=== PATIENT | male | born 1950 | race American Indian/Alaskan Native ===

== ENCOUNTER 2019-07-29 17:28 | Observation (INO) | payer MEDICARE ==
[~2019-07-29] VITALS: Ht 170.2 cm; Wt 75.9 kg
[2019-07-29 18:44] LABS: BASOPHILS % (AUTO) 0.3 % (0-1); EOSINOPHILS % (AUTO) 0.3 % (0-6); LYMPHOCYTES # (AUTO) 0.6 X10'3 (1.1-4.8); LYMPHOCYTES % (AUTO) 5.1 % (21-51); MEAN CORPUSCULAR HEMOGLOBIN 28.6 PG (27.0-31.0); MEAN CORPUSCULAR HGB CONC 34.2 g/dL (33.0-36.5); MEAN CORPUSCULAR VOLUME 83.8 FL (78-98); MEAN PLATELET VOLUME 6.6 FL (7.4-10.4); MONOCYTES # (AUTO) 0.8 X10'3 (0-0.9); MONOCYTES % (AUTO) 6.4 % (2-12); NEUTROPHILS # (AUTO) 10.5 X10'3 (1.8-7.7); NEUTROPHILS % (AUTO) 87.9 % (42-75); PLATELET COUNT 316 X10'3 (140-440); RED BLOOD COUNT 4.54 X10'6 (4.70-6.10); RED CELL DISTRIBUTION WIDTH 13.7 % (11.5-14.5); WHITE BLOOD COUNT 11.9 X10'3 (4.5-11.0)
[2019-07-29 19:11] LABS: ALANINE AMINOTRANSFERASE 28 U/L (12-78); ALBUMIN 2.8 G/DL (3.4-5.0); ALBUMIN/GLOBULIN RATIO 0.7 (1.1-1.5); ALKALINE PHOSPHATASE 89 IU/L (46-116); ANION GAP 11 (8-16); ASPARTATE AMINO TRANSFERASE 32 U/L (10-37); BILIRUBIN,TOTAL 0.5 MG/DL (0.1-1.0); BLOOD UREA NITROGEN 40 MG/DL (7-18); BUN/CREATININE RATIO 23.4 (5.4-32.0); CALCIUM 8.4 MG/DL (8.5-10.1); CHLORIDE 93 MMOL/L (99-107); CREATININE 1.71 MG/DL (0.60-1.10); GLUCOSE 171 MG/DL (70-104); SODIUM 131 MMOL/L (135-145); TOTAL CARBON DIOXIDE 26.9 MMOL/L (24-32); TOTAL PROTEIN 7.1 G/DL (6.4-8.2); eGFR 40 ML/MIN
[2019-07-29 19:15] LABS: POTASSIUM 2.6 MMOL/L (3.5-5.1)
[2019-07-29 19:25] LABS: PARTIAL THROMBOPLASTIN TIME 32 SECONDS (22-32)
[2019-07-29] MEDS ORDERED: potassium 10mEq/100ml NS w/LIDOcaine (10mg/bag) IV SCH (19:40)
[2019-07-29] MEDS: potassium CL 10mEq/100ml bag 100 ML IV SCH ×2 (20:05→21:06)
[2019-07-29] MEDS ORDERED: METF1000 PO (20:28)
[2019-07-29] MEDS ORDERED: LOSA50TA3 PO (20:28)
[2019-07-29] MEDS ORDERED: CHLO25TA2 PO (20:28)
[2019-07-29] MEDS ORDERED: NIFE90TA37 PO (20:28)
[2019-07-29] MEDS ORDERED: METO100T7 PO (20:28)
[2019-07-29] MEDS ORDERED: ASPI-611 PO (20:29)
[2019-07-29] MEDS ORDERED: OMEG1000 PO (20:29)
[2019-07-29] MEDS ORDERED: ATOR80TA PO (20:29)
[2019-07-29] MEDS ORDERED: FEXO-124 PO (20:29)
[2019-07-29] MEDS ORDERED: FLUT1DIS4 INH (20:29)
[2019-07-29] MEDS ORDERED: VITC500T PO (20:29)
[2019-07-29] MEDS ORDERED: IRON18TA PO (20:29)
[2019-07-29] MEDS ORDERED: FAMO20TA8 PO (20:29)
[2019-07-29] MEDS ORDERED: INSU100V5 SQ ×2 (20:29)
[2019-07-29] MEDS: normal saline 1000ml 1,000 ML IV SCH (20:56)
[2019-07-29] MEDS ORDERED: magnesium 4gm in 100ml NS 100 ML IV PRN (21:00)
[2019-07-29] MEDS ORDERED: potassium CL 10mEq/100ml bag 100 ML IV PRN ×2 (21:00)
[2019-07-29] MEDS ORDERED: potassium Cl 20 mEq SR tablet PO PRN ×2 (21:00)
[2019-07-29] MEDS ORDERED: insulin glargine (Lantus) pen - multi-dose SQ SCH (21:00)
[2019-07-29] MEDS ORDERED: mag hydrox/Alum hydrox/simeth 30ml oral suspension PO PRN (21:00)
[2019-07-29] MEDS ORDERED: potassium Cl 20 mEq SR tablet PO ONE (21:00)
[2019-07-29] MEDS ORDERED: ondansetron/PF 4mg/2ml inj IV PRN (21:00)
[2019-07-29] MEDS ORDERED: glucagon, human recombinant 1mg kit SUBCUT PRN (21:00)
[2019-07-29] MEDS ORDERED: magnesium hydroxide 30ml (MOM) UD suspension PO PRN (21:00)
[2019-07-29] MEDS ORDERED: magnesium Cl slow-release 64mg tablet PO PRN (21:00)
[2019-07-29] MEDS ORDERED: dextrose ORAL solution 15 GM/59 ML bottle PO PRN ×2 (21:00)
[2019-07-29] MEDS ORDERED: HYDROcodone/acetaminophen 5mg/325mg tablet PO PRN (21:00)
[2019-07-29] MEDS ORDERED: magnesium 2GM in 50ml NS 50 ML IV PRN (21:00)
[2019-07-29] MEDS ORDERED: dextrose 50%-water 50ml dispensing syringe IV PRN ×2 (21:00)
[2019-07-29] MEDS ORDERED: MESSAGE TO PHARMACY PO ONE (21:00)
[2019-07-29] MEDS ORDERED: insulin Lispro (HumaLOG) vial - multi-dose SQ SCH (21:00)
[2019-07-29] MEDS ORDERED: acetaminophen 325mg tablet PO PRN ×2 (21:00)
[2019-07-29 21:38] LABS: HEMOGLOBIN A1C 6.5 % (4.5-6.2)
[2019-07-29 22:00] VITALS: BP 149/67
[2019-07-30] MEDS: albuterol 2.5 MG/3 ML nebule NEB SCH ×3 (02:46→14:11)
[2019-07-30 06:00] VITALS: BP 118/55
[2019-07-30 06:05] LABS: BASOPHILS % (AUTO) 0.3 % (0-1); EOSINOPHILS % (AUTO) 0.5 % (0-6); HEMATOCRIT 33.1 % (42.0-52.0); HEMOGLOBIN 11.7 g/dl (14.0-17.9); LYMPHOCYTES # (AUTO) 0.7 X10'3 (1.1-4.8); LYMPHOCYTES % (AUTO) 7.4 % (21-51); MEAN CORPUSCULAR HEMOGLOBIN 29.5 PG (27.0-31.0); MEAN CORPUSCULAR HGB CONC 35.4 g/dL (33.0-36.5); MEAN CORPUSCULAR VOLUME 83.5 FL (78-98); MEAN PLATELET VOLUME 6.6 FL (7.4-10.4); MONOCYTES # (AUTO) 0.8 X10'3 (0-0.9); MONOCYTES % (AUTO) 7.9 % (2-12); NEUTROPHILS % (AUTO) 83.9 % (42-75); PLATELET COUNT 275 X10'3 (140-440); RED BLOOD COUNT 3.97 X10'6 (4.70-6.10); RED CELL DISTRIBUTION WIDTH 13.7 % (11.5-14.5); WHITE BLOOD COUNT 9.6 X10'3 (4.5-11.0)
[2019-07-30 06:10] LABS: ALBUMIN 2.4 G/DL (3.4-5.0); ANION GAP 10 (8-16); BLOOD UREA NITROGEN 32 MG/DL (7-18); BUN/CREATININE RATIO 19.8 (5.4-32.0); CALCIUM 8.2 MG/DL (8.5-10.1); CHLORIDE 101 MMOL/L (99-107); CREATININE 1.62 MG/DL (0.60-1.10); GLUCOSE 159 MG/DL (70-104); MAGNESIUM 2.3 MG/DL (1.5-2.4); POTASSIUM 3.1 MMOL/L (3.5-5.1); SODIUM 139 MMOL/L (135-145); TOTAL CARBON DIOXIDE 27.9 MMOL/L (24-32); eGFR 43 ML/MIN
--- NOTE | 2019-07-30 06:35 | NUR ---
Report given to irene Cummings.
[2019-07-30] MEDS ORDERED: budesonide 0.5mg/2ml UD nebule IH SCH (08:00)
[2019-07-30] MEDS ORDERED: loratadine 10mg tablet PO SCH (08:00)
[2019-07-30] MEDS ORDERED: OMEGA-3/DHA/EPA/FISH OIL 1 EACH CAPSULE.DR PO SCH (08:00)
[2019-07-30] MEDS ORDERED: NIFEdipine XL 30mg tablet PO SCH (08:00)
[2019-07-30] MEDS ORDERED: ascorbic acid 500mg tablet PO SCH (08:00)
[2019-07-30] MEDS ORDERED: ferrous sulfate 325mg tablet PO SCH (08:00)
[2019-07-30] MEDS ORDERED: K and/or MAG REPLACEMENT MC SCH (08:00)
[2019-07-30] MEDS ORDERED: metoprolol succinate 25mg (24-HOUR) SR. Tablet PO SCH (08:00)
[2019-07-30] MEDS ORDERED: aspirin 81mg tablet.DR PO SCH (08:00)
[2019-07-30] MEDS ORDERED: famotidine 20mg tablet PO SCH (08:00)
[2019-07-30 10:00] VITALS: BP 124/54
[2019-07-30] MEDS: normal saline 1000ml 1,000 ML IV SCH (10:55)
[2019-07-30 14:18] VITALS: BP_SYST 121; BP_SYST 133; BP_SYST 141; BP_DIAS 53; BP_DIAS 54; BP_DIAS 56
--- NOTE | 2019-07-30 15:25 | NUR ---
Patient stable for discharge home today with . All discharge instructions given to patient, IV out and belongings sent with patient
[2019-07-30] MEDS ORDERED: losartan 50mg tablet PO SCH (21:00)
[2019-07-30] MEDS ORDERED: atorvastatin 20mg tablet PO SCH (21:00)
== END 2019-07-30 15:20 | disposition home or self-care (01) ==
LOC: ER 17:30 → ORTHO 4S 22:14 → CMPBEDREQ 22:18
PROVIDERS: ADMIT Hospitalist; ATTEND Internal Medicine
DX: E87.5 Hyperkalemia (principal); N17.9 Acute kidney failure, unspecified; E86.0 Dehydration; E87.1 Hypo-osmolality and hyponatremia; I25.10 Atherosclerotic heart disease of native coronary artery without angina pectoris; I10 Essential (primary) hypertension; E11.9 Type 2 diabetes mellitus without complications; J44.9 Chronic obstructive pulmonary disease, unspecified; E78.00 Pure hypercholesterolemia, unspecified; E87.6 Hypokalemia; I25.2 Old myocardial infarction; Z79.82 Long term (current) use of aspirin; Z79.84 Long term (current) use of oral hypoglycemic drugs; E11.22 Type 2 diabetes mellitus with diabetic chronic kidney disease; I12.9 Hypertensive chronic kidney disease with stage 1 through stage 4 chronic kidney disease, or unspecified chronic kidney disease; N18.3 Chronic kidney disease, stage 3 (moderate)
CPT/HCPCS: 36415; 71046; 80048; 80053; 82948; 83036; 83735; 84484; 85025; 85610; 85730; 87081; 93005; 94640; 94760; 96361; 96365; 96366; 99284; G0378; J1815; J3480; J7030; J7626